=== PATIENT | female | born 1945 | race Asian ===

== ENCOUNTER 2019-05-06 13:09 | Emergency (ER) | payer OTHER, MEDICAID, MEDICARE ==
[2019-05-06] MEDS: ACETAMINOPHEN 500 MG TAB PO (13:55)
== END 2019-05-06 14:47 | disposition home or self-care (01) ==
LOC: FTE 14:47
DX: R51 Headache (principal); I10 Essential (primary) hypertension; E11.9 Type 2 diabetes mellitus without complications; Z79.82 Long term (current) use of aspirin; Z79.84 Long term (current) use of oral hypoglycemic drugs
CPT/HCPCS: 70450; 99284-25